=== PATIENT | female | born 1985 | race Asian ===

== ENCOUNTER 2021-07-18 08:30 | Emergency (ER) | payer MEDICAID ==
[~2021-07-18] VITALS: Ht 160 cm; Wt 61.4 kg
[2021-07-18] MEDS ORDERED: LORazepam 1 MG TABLET PO ONE (09:45)
[2021-07-18 11:22] VITALS: BP 115/80
== END 2021-07-18 11:35 | disposition home or self-care (01) ==
LOC: EMS 08:30
DX: F41.9 Anxiety disorder, unspecified (principal); R20.0 Anesthesia of skin
CPT/HCPCS: 93005; 99284; Z7502; Z7610